=== PATIENT | female | born 1935 | race Two or more races ===

== ENCOUNTER 2024-01-02 13:20 | Emergency (ER) | payer SELFPAY ==
[~2024-01-02] VITALS: Ht 149.9 cm; Wt 48.0 kg
[2024-01-02 14:26] VITALS: BP 181/73; RESP 18; O2SAT 96
[2024-01-02 15:25] LABS: Basophils # (auto) 0.1 10 ^3/uL (0-0.2); Basophils % (auto) 1.1 % (0.0-2.0); Eosinophils # (auto) 0.4 10 ^3/uL (0-0.8); Eosinophils % (auto) 3.8 % (0.0-7.0); Hematocrit 44.7 % (36.0-46.0); Hemoglobin 14.4 g/dL (12.2-16.2); Lymphocytes # (auto) 2.7 10 ^3/uL (0.4-5.4); Lymphocytes % (auto) 24.4 % (10.0-50.0); Mean Corpuscular Hemoglobin 28.3 pg (28.0-32.0); Mean Corpuscular Hgb Conc. 32.1 g/dL (32.0-36.0); Mean Corpuscular Volume 88.2 fL (80.0-100.0); Monocytes # (auto) 0.8 10 ^3/uL (0-1.3); Monocytes % (auto) 7.3 % (0.0-12.0); Neutrophils % (auto) 63.4 % (37.0-80.0); Nucleated Red Blood Cells % 0.2 %; Red Blood Cells 5.07 10^6/uL (4.0-5.20); Red Cell Distribution Width 13.8 % (11.8-14.3); White Blood Cell 11.1 10^3/uL (4.4-10.8)
[2024-01-02 15:33] LABS: Chloride 107 mmol/L (98-107); Potassium 4.3 mmol/L (3.5-5.1); Sodium 142 mmol/L (136-145)
[2024-01-02 15:34] LABS: Anion Gap 8 (5-15); Carbon Dioxide 27 mmol/L (20-30)
[2024-01-02 15:35] LABS: Calcium 9.6 mg/dL (8.5-10.1)
[2024-01-02 15:39] LABS: BUN/Creatinine Ratio 23.3 (10.0-20.0); Blood Urea Nitrogen 17 mg/dL (9-23); Glucose 101 mg/dL (74-106)
[2024-01-02] MEDS ORDERED: ACET-1080 PO (16:12)
[2024-01-02] MEDS ORDERED: LOSA50TA46 PO (16:12)
[2024-01-02] MEDS: ACETAMINOPHEN 325 MG TAB PO ONE (16:15)
[2024-01-02 16:38] VITALS: PULSE 62
[2024-01-02 16:45] VITALS: TEMP 97
== END 2024-01-02 16:47 | disposition home or self-care (01) ==
LOC: ER 13:20
DX: S29.011A Strain of muscle and tendon of front wall of thorax, initial encounter (principal); I10 Essential (primary) hypertension; Z76.0 Encounter for issue of repeat prescription; Z79.899 Other long term (current) drug therapy; X58.XXXA Exposure to other specified factors, initial encounter; Y93.89 Activity, other specified; Y92.89 Other specified places as the place of occurrence of the external cause; Y99.8 Other external cause status
CPT/HCPCS: 36415; 71101; 80048; 84484; 85025; 93005

== ENCOUNTER 2024-01-19 16:46 | Emergency (ER) | payer SELFPAY ==
[~2024-01-19] VITALS: Ht 152.4 cm; Wt 50.0 kg
[~2024-01-19 16:46] MED LIST: ACET-1080 PO; LOSA50TA46 PO
[2024-01-19 17:03] VITALS: BP 130/53; PULSE 69; RESP 16; O2SAT 97
[2024-01-19] MEDS ORDERED: LOSA50TA46 PO (19:20)
== END 2024-01-19 21:43 | disposition home or self-care (01) ==
LOC: ER 16:46
DX: I10 Essential (primary) hypertension (principal); Z76.0 Encounter for issue of repeat prescription; Z79.899 Other long term (current) drug therapy